=== PATIENT | female | born 1965 | race Caucasian/White ===

== ENCOUNTER 2023-01-03 15:32 | Outpatient (CLI) | payer OTHER, SELFPAY ==
--- NOTE | ~2023-01-03 | XR_ITS ---
EXAMINATION: XR abdomen obstructive series DATE: 01/03/2023 16:18 INDICATION: Rectal bleeding. TECHNIQUE: Upright and supine views of the abdomen on 3 radiographs were obtained. COMPARISON: None. FINDINGS: There are no dilated loops of bowel. There is a small volume of stool in the colon. Calcifi cations in the pelvis are likely phleboliths. No free intraperitoneal gas. IMPRESSION: 1. Normal bowel gas pattern. Reviewed, dictated and finalized at location A.
== END 2023-01-03 15:33 | disposition home or self-care (01) ==
LOC: CHSIMG 15:37
PROVIDERS: PCP Physician Assistant; Visit Provider Physician Assistant
DX: K59.00 Constipation, unspecified (principal)
CPT/HCPCS: 74019

== ENCOUNTER 2023-01-14 12:23 | Outpatient (CLI) | payer OTHER, SELFPAY ==
--- NOTE | ~2023-01-14 | CT_ITS ---
CT of the Abdomen and Pelvis: Indication: Rectal bleeding, constipation Technique: 2.5 mm axial scans were obtained through the abdomen and pelvis following intravenous adm inistration of 100 cc of Omnipaque 350. Dose reduction technique was used on this scan by utilizing a utomated exposure control and iterative reconstruction technique. The dose-length product (DLP) was 2 76.12 mGy-cm. Findings: Scans through the lung bases are unremarkable. Probable tiny hepatic cysts noted. The spleen, pancreas, gallbladder, adrenals and kidneys are within normal limits. No evidence of aortic aneurysm. No lymphadenopathy. No bowel obstruction or bowel wall thickening. Moderate stool is consistent with constipation. There is no evidence to suggest acute appendicitis. Images through the pelvis were performed. Urinary bladder unremarkable. No adnexal mass seen. No asci jean claude. Mild compression deformity of the superior endplate of L5 noted. Impression: Mild compression deformity at the superior endplate of L5, age indeterminate. Moderate stool, consistent with constipation. Reviewed, dictated and finalized at location . Impression: Mild compression deformity at the superior endplate of L5, age indeterminate. Moderate stool, consistent with constipation.
== END 2023-01-14 12:24 | disposition home or self-care (01) ==
LOC: CHSIMG 12:24
PROVIDERS: PCP Physician Assistant; Visit Provider Physician Assistant
DX: K62.5 Hemorrhage of anus and rectum (principal); M43.8X6 Other specified deforming dorsopathies, lumbar region; K59.00 Constipation, unspecified
CPT/HCPCS: 74177; Q9967